=== PATIENT | male | born 1940 | race Caucasian/White ===

== ENCOUNTER 2020-07-27 09:59 | Outpatient (CLI) | payer OTHER, MEDICARE, SELFPAY | END 2020-07-27 10:00 | disposition home or self-care (01) | LOC: ANHCOVIDVC 09:59 | PROVIDERS: PCP Family Medicine | DX: Z23 Encounter for immunization (principal) | CPT/HCPCS: 0001A; 91300 ==

== ENCOUNTER 2020-08-17 10:02 | Outpatient (CLI) | payer OTHER, MEDICARE, SELFPAY | END 2020-08-17 10:03 | disposition home or self-care (01) | LOC: ANHCOVIDVC 10:02 | PROVIDERS: PCP Family Medicine | DX: Z23 Encounter for immunization (principal) | CPT/HCPCS: 0002A; 91300 ==

== ENCOUNTER 2022-05-12 10:35 | Emergency (ER) | payer OTHER, SELFPAY ==
[2022-05-12 10:49] VITALS: BP 155/66; PULSE 64; RESP 16; TEMP 36.1; O2SAT 99
--- NOTE | 2022-05-12 10:54 | ED.GENADULT ---
HPI - General Adult General Chief complaint: Skin/Abscess/Foreign Body Stated complaint: Headache,Insect Bite Lt Arm,Upset Stomach Time Seen by Provider: 05/12/22 11:17 Source: patient Mode of arrival: ambulatory Limitations: no limitations History of Present Illness HPI narrative: 81-year-old male presents concern for possible bite on his left forearm that happened 2 weeks ago. Reports it is red and raised. Reports that slightly smaller but not much. He reports also had nausea for the past 2 weeks. His reports his appetite is poor. He denies fever, aches, chills, sweats. He denies vomiting, abdominal pain, diarrhea. He reports mild headache. MD complaint: Insect bite Related Data Home Medications Medication Instructions Recorded Confirmed alogliptin 12.5 mg tablet 12.5 mg PO DAILY 12/17/19 12/26/21 amlodipine 10 mg tablet 10 mg PO DAILY 12/17/19 12/26/21 aspirin 81 mg tablet,delayed 81 mg PO DAILY 12/17/19 12/26/21 release atorvastatin 80 mg tablet 80 mg PO QPM 12/17/19 12/26/21 blood sugar diagnostic (Accu-Chek #10 ea 12/17/19 12/26/21 April Plus test strips) carvedilol 25 mg tablet 25 mg PO BID 12/17/19 12/26/21 donepezil 10 mg tablet 10 mg PO QPM 12/17/19 12/26/21 empagliflozin 25 mg tablet 25 mg PO DAILY 12/17/19 12/26/21 lancets #50 ea 12/17/19 12/26/21 loperamide 2 mg capsule 2 mg PO Q6H PRN 12/17/19 12/26/21 losartan 100 mg tablet 100 mg PO DAILY 12/17/19 12/26/21 memantine 10 mg tablet 10 mg PO BID 12/17/19 12/26/21 Allergies Allergy/AdvReac Type Severity Reaction Status Date / Time acetaminophen Allergy Mild RASH Verified 05/12/22 11:27 propoxyphene Allergy Mild RASH Verified 05/12/22 11:27 LAVA SOAP Allergy Mild RASH Uncoded 05/12/22 11:27 Review of Systems Review of Systems: CONSTITUTIONAL: Denies malaise, chills, sweats, or fever. EYES: Denies visual changes, redness, or discharge. ENT: Denies rhinorrhea, congestion, sinus pain, otalgia or sore throat. CARDIOVASCULAR: Denies chest pain, palpitations, or edema. RESPIRATORY: Denies cough or dyspnea. GASTROINTESTINAL: Denies abdominal pain, vomiting, diarrhea. Reports nausea GENITOURINARY: Denies dysuria or hematuria. SKIN: Reports a bite on his left forearm MUSCULOSKELETAL: Denies myalgia. NEUROLOGIC: Reports mild headache. PSYCHIATRIC: Denies anxiety or depression. All systems reviewed & are unremarkable except as noted in HPI and below PMFSH Past Medical History Medical History Alzheimer's dementia CAD (coronary artery disease) Chronic kidney disease Diabetes History of myocardial infarction Hyperlipidemia Hypertension Surgical History Surgical History History of coronary artery bypass graft Family History Family History Father Family history of lung cancer Patient's father is Mother Patient's mother is Other Cerebrovascular accident Diabetes mellitus Family history of coronary artery disease Family history of lymphoma Hypertension Social History Social History Smoking status: Never smoker Second hand tobacco smoke exposure: No Alcohol intake: current Comments At time of signature, agree with nursing past medical, surgical, social and family history. There is no relevant family history pertinent to the presenting complaint Exam Narrative: GENERAL: Well-appearing, well-nourished, and in no acute distress. HEAD: Normocephalic, atraumatic. EYES: PERRLA, sclera clear, and EOMI. ENT: Nares clear. Mucous membranes moist. NECK: Supple. No lymphadenopathy. No jugular venous distension, thyromegaly, or carotid bruits. Carotids were easily palpable bilaterally. CHEST: No respiratory distress. Clear to auscultation. No bony deformit
== END 2022-05-12 11:38 | disposition home or self-care (01) ==
PROVIDERS: Emergency Provider Nurse Practitioner; PCP Family Medicine
DX: S50.862A Insect bite (nonvenomous) of left forearm, initial encounter (principal); R11.0 Nausea; I12.9 Hypertensive chronic kidney disease with stage 1 through stage 4 chronic kidney disease, or unspecified chronic kidney disease; E11.22 Type 2 diabetes mellitus with diabetic chronic kidney disease; N18.9 Chronic kidney disease, unspecified; I25.10 Atherosclerotic heart disease of native coronary artery without angina pectoris; E78.5 Hyperlipidemia, unspecified; I52 Other heart disorders in diseases classified elsewhere; W57.XXXA Bitten or stung by nonvenomous insect and other nonvenomous arthropods, initial encounter
CPT/HCPCS: 99213; G0463